=== PATIENT | male | born 2000 | race Caucasian/White ===

== ENCOUNTER 2020-03-06 20:05 | Emergency (ER) | payer OTHER ==
[~2020-03-06] VITALS: Ht 193 cm; Wt 94.7 kg
[2020-03-06] MEDS ORDERED: MORPHINE 10 MG/ML 1ML VIAL (J2270) IM ONE (21:30)
--- NOTE | 2020-03-06 21:55 | REPVR ---
PROCEDURE INFORMATION: Exam: XR Left Forearm Exam date and time: 03/06/2020 9:22 PM Age: 19 years old Clinical indication: Pain; Lower or forearm; Left; Additional info: Fall, pain TECHNIQUE: Imaging protocol: XR Left forearm. Views: 2 views. COMPARISON: CR - Wrist, complete LEFT 03/06/2020 8:30:25 PM FINDINGS: Bones/joints: There is an acute, complete, mildly comminuted, predominantly transverse, impacted fracture of the left distal radial metaphysis, with mild dorsal angulation of the distal component. No intra-articular extension of the fracture is seen. No other fractures are seen. The radiocarpal alignment and alignment of the distal radioulnar joint are maintained. Soft tissues: There is soft tissue swelling in the left wrist. IMPRESSION: Acute, complete, mildly comminuted, predominantly transverse, impacted fracture of the left distal radial metaphysis, with mild dorsal angulation of the distal component. Electronically signed by: Ryan Mcdaniels On 03/06/2020 21:56:13 PM
--- NOTE | 2020-03-06 21:55 | REPVR ---
PROCEDURE INFORMATION: Exam: XR Left Wrist Exam date and time: 03/06/2020 9:22 PM Age: 19 years old Clinical indication: Pain; Wrist; Left; Additional info: Fall, pain TECHNIQUE: Imaging protocol: XR Left wrist. Views: 3 or more views. COMPARISON: CR - Forearm Radius,Ulna LEFT 03/06/2020 8:30:25 PM FINDINGS: Bones/joints: There is an acute, complete, mildly comminuted, predominantly transverse, impacted fracture of the left distal radial metaphysis, with mild dorsal angulation of the distal component. No intra-articular extension of the fracture is seen. No other fractures are seen. The radiocarpal alignment and alignment of the distal radioulnar joint are maintained. There is no widening of the scapholunate or lunotriquetral space is. No pattern of carpal instability is noted in the left wrist. There is approximately 1 mm of left ulnar positive variance. Soft tissues: There is soft tissue swelling in the left wrist. IMPRESSION: Acute, complete, mildly comminuted, predominantly transverse, impacted fracture of the left distal radial metaphysis, with mild dorsal angulation of the distal component. Electronically signed by: Ryan Mcdaniels On 03/06/2020 21:56:01 PM
[2020-03-06] MEDS ORDERED: LIDOCAINE 1% MDV 20ML VIAL IM ONE (23:30)
[2020-03-06] MEDS ORDERED: BUPIVACAINE HCL 0.5% 30 ML VIAL SC ONE (23:30)
[2020-03-07] MEDS ORDERED: ACET1TAB16 PO (00:28)
[2020-03-07 00:42] VITALS: BP 144/90
--- NOTE | 2020-03-07 00:58 | REPVR ---
PROCEDURE INFORMATION: Exam: CT Left Upper Extremity Without Contrast, Wrist Exam date and time: 03/07/2020 12:24 AM Age: 19 years old Clinical indication: Injury or trauma; Fall; Fracture, traumatic injury; Closed fracture; Wrist; Left; Bone fracture not specified; Additional info: Distal impacted radial FX, R/O intra-articular involvment TECHNIQUE: Imaging protocol: CT of the Left upper extremity without contrast was performed. Exam focused on the wrist. Radiation optimization: All CT scans at this facility use at least one of these dose optimization techniques: automated exposure control; mA and/or kV adjustment per patient size (includes targeted exams where dose is matched to clinical indication); or iterative reconstruction. COMPARISON: CR Wrist, complete LEFT 03/06/2020 8:30 PM FINDINGS: Bones/joints: There is an acute, complete, mildly comminuted, predominantly transverse fracture of the left distal radial metaepiphysis, with improved alignment compared to the prior left wrist x-rays on 03/06/2020. One of the fracture lines extends into the dorsal aspect of the sigmoid notch of the distal radius. No involvement of the lunate fossa or scaphoid fossa of the distal radius is noted. The radiocarpal alignment and alignment of the distal radioulnar joint are preserved. The joint spaces are maintained. No arthropathy is noted. There is no CT evidence for a bone tumor. Soft tissues: There is soft tissue swelling and edema around the left wrist. No drainable soft tissue fluid collection or radiopaque foreign body is noted. The left upper extremity is held in a cast. There is an accessory abductor digiti minimi muscle, which originates from the antebrachial fascia, passes volar to Guyon's canal, and inserts onto the abductor digiti minimi muscle. IMPRESSION: Acute, complete, mildly comminuted, predominantly transverse fracture of the left distal radial metaepiphysis, with intra-articular extension into the dorsal aspect of the sigmoid notch, but no involvement of the scaphoid fossa or lunate fossa and with improved alignment compared to the prior left wrist x-rays on 03/06/2020. Electronically signed by: Ryan Mcdaniels On 03/07/2020 00:58:12 AM
--- NOTE | 2020-03-07 06:31 | CR ---
CONSULTATION DATE: 03/06/2020 TIME: 11:00 p.m. CONSULTING SERVICE: Orthopedic surgery. CONSULTING PHYSICIAN: Levi Doll MD DIAGNOSIS: Left distal radius fracture, closed. HISTORY OF PRESENT ILLNESS: This was a 19-year-old male who sustained a left closed distal radius fracture while snow boarding at [facility] here in [place], [place]. The patient presented to [facility] on the kareen of 06 March 2020 for left wrist pain and deformity. ER consult was orthopedic surgery and Dr. Levi Doll evaluated the patient. The patient was closed reduced and placed in a sugar-tong splint. PAST MEDICAL HISTORY: Denies. PAST SURGICAL HISTORY: Right ankle open reduction internal fixation. ALLERGIES: Denies. CURRENT MEDICATIONS: Denies. SOCIAL HISTORY: He is a marijuana smoker, social drinker, non-IV drug user. REVIEW OF SYSTEMS: A 14 point review of systems was negative unless otherwise described in the HPI above. PHYSICAL EXAMINATION: Alert to person, time and place. Left upper extremity: He has an obvious deformity about the left distal radius which is a closed injury with no breaks in the skin. His left upper extremity was neurovascularly intact with 2+ radial ulnar pulse. Brisk capillary refill to all of the digits. He had 5/5 motor strength to the musculocutaneous, axial, radial, median and ulnar nerve distributions, sensation was intact to light touch to the mucocutaneous, axillary, radial, median and ulnar nerve distributions. The patient had 5/5 motor strength specifically to the EPL, FPL, and adductors of the fingers indicative of an AIN, PIN and ulnar nerve distally to the fracture. IMAGING: The patient had imaging to the left wrist which demonstrated about 20 degrees of dorsal angulation of a distal radius fracture with no obvious extension into the wrist joint. This appeared to be extraarticular based on radiographs. However, the patient has a pending CT scan to further delineate any possible fracture extension interarticularly. CT scan pending. IMPRESSION: A 19-year-old male with a closed left distal radius fracture, most likely interarticular. PLAN: The patient underwent hematoma evacuation and hematoma Lidocaine/Marcaine block. The patient had significant pain relief. The patient was then closed reduced and placed in a sugar-tong splint with a three-point mold in order to hold the fracture reduced. The patient was significantly more comfortable after the reduction. The patient is pending a CT scan after his closed reduction in order to further characterize the fracture and for possible surgical planning. The patient will follow-up in one week when the swelling is reduced for possible open reduction internal fixation of the distal radius. The patient will be consulted on the pros and cons of surgery. He has a follow-up with [facility] in one week. The pros of surgery would be possible better medium outcome scores and slightly increased stable attendant strength. However, the risks would include infection, nerve damage and blood loss. The patient will be counseled on the pros and cons of surgery versus nonoperative management in one week at [facility] and based on repeat radiographs. Patient will be discharged on appropriate pain medication and discharged after his pending CT scan.
--- NOTE | 2020-03-07 07:51 | REP ---
INDICATION: reduction COMPARISON: None. TECHNIQUE: Fluoroscopic images obtained using portable C-arm technique. FINDINGS: Patient is status post satisfactory closed reduction for distal radial fracture. Total fluoroscopic time 92.5 seconds IMPRESSION: Status post satisfactory closed reduction. <Electronically signed by Bereket Mixon > 03/07/20 [id number]
== END 2020-03-07 00:45 | disposition home or self-care (01) ==
LOC: EDBD 20:05 → M ED 20:05
DX: S52.502A Unspecified fracture of the lower end of left radius, initial encounter for closed fracture (principal); Y92.9 Unspecified place or not applicable; Y93.23 Activity, snow (alpine) (downhill) skiing, snowboarding, sledding, tobogganing and snow tubing; Y99.9 Unspecified external cause status
CPT/HCPCS: 25600; 73090; 73100; 73110; 73200; 96372; 99283; J2270